=== PATIENT | female | born 2005 | race Caucasian/White ===

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

== ENCOUNTER → 2023-06-18 | Outpatient (CLI) | payer OTHER ==
[~2023-06-18] MED LIST changes: +Phentermine HCl15 MG PO; +TRI-LO-SPRINTE1 EACH PO; +VITAMIN D3 MA125 MCG PO
== END | disposition home or self-care (01) ==
LOC: LAB SHORT 11:29 → LAB 11:29
DX: N39.0 Urinary tract infection, site not specified (principal)
CPT/HCPCS: 87077; 87086; 87186